=== PATIENT | male | born 1945 | race Caucasian/White ===

== ENCOUNTER 2018-04-13 08:35 | Emergency (ER) | payer OTHER, MEDICARE ==
[~2018-04-13] VITALS: Ht 175.3 cm; Wt 100.0 kg
[2018-04-13] MEDS ORDERED: HUMIRA PEN40 MG/0.1 SC (08:54)
[2018-04-13] MEDS ORDERED: CARVEDILOL12.5 MG PO (08:56)
[2018-04-13] MEDS ORDERED: ELIQUIS5 MG PO (08:56)
[2018-04-13] MEDS ORDERED: ATORVASTATIN CA80 MG PO (08:56)
[2018-04-13] MEDS ORDERED: DOCU SOFT100 MG PO (08:57)
[2018-04-13] MEDS ORDERED: CLONIDINE0.1 MG PO (08:57)
[2018-04-13] MEDS ORDERED: HYDROCHLOROT12.5 MG PO (08:58)
[2018-04-13] MEDS ORDERED: FOLIC ACID1 MG PO (08:58)
[2018-04-13] MEDS ORDERED: LOSARTAN POT50 MG PO (08:59)
[2018-04-13] MEDS ORDERED: PREDNISONE5 MG PO (08:59)
[2018-04-13] MEDS ORDERED: METHOTREXATE2.5 MG PO (09:00)
[2018-04-13 09:23] LABS: HEMATOCRIT 40.9 % (39.0-50.0); HEMOGLOBIN 13.8 g/dl (14.0-18.0); IMMATURE GRANULOCYTES 0.5 % (0.0-5.0); MEAN CELL VOLUME 106.5 fL CALC (80.0-100.0); MEAN CORPUSCULAR HGB 35.9 pG CALC (26.0-32.0); MEAN CORPUSCULAR HGB CONC 33.7 g/L CALC (32.0-36.0); NEUT# 4.78 thou/uL (1.82-7.42); RED BLOOD COUNT 3.84 mill/uL (4.70-6.10); RED CELL DISTRI WIDTH 14.9 % (11.5-15.5)
[2018-04-13 09:43] LABS: ALKALINE PHOSPHATASE 69 u/l (38-126); ANION GAP 14 (6-22 (CALC)); BUN 24 mg/dL (8-23); BUN/CREATININE RATIO 21 (12-20 (CALC)); CARBON DIOXIDE 26 mmol/l (22-30); CHLORIDE 106 mmol/l (95-108); CREATININE 1.2 mg/dL (0.7-1.3); GFR 59 ML/MIN (>=60 (CALC)); GFR FOR AFR.AMER. > 60 ML/MIN (>=60 (CALC)); POTASSIUM 4.5 mmol/l (3.5-5.1); SGOT/AST 31 u/l (19-48); SODIUM 141 mmol/l (137-146); TOTAL PROTEIN 6.9 g/dL (6.3-8.2)
[2018-04-13] MEDS ORDERED: TESSALON PERLE100 MG PO (10:37)
[2018-04-13] MEDS ORDERED: MEDDOSEPAK PO (10:37)
[2018-04-13] MEDS ORDERED: PROVENTIL108 MCG/AC IN (10:37)
[2018-04-13] MEDS ORDERED: ZITHROMAX250 MG PO (10:37)
[2018-04-13 10:46] VITALS: BP 146/77
== END 2018-04-13 11:01 | disposition home or self-care (01) | DRG 153 ==
LOC: ED 08:35
PROVIDERS: Emergency Medicine
DX: J06.9 Acute upper respiratory infection, unspecified (principal); R06.02 Shortness of breath; R53.81 Other malaise; R53.1 Weakness; I48.0 Paroxysmal atrial fibrillation
CPT/HCPCS: Q9967

== ENCOUNTER 2019-05-13 07:18 | Emergency (ER) | payer OTHER, MEDICARE ==
[~2019-05-13 07:18] MED LIST: ATORVASTATIN CA80 MG PO; CARVEDILOL12.5 MG PO; CLONIDINE0.1 MG PO; DOCU SOFT100 MG PO; ELIQUIS5 MG PO; FOLIC ACID1 MG PO; HUMIRA PEN40 MG/0.1 SC; HYDROCHLOROT12.5 MG PO; LOSARTAN POT50 MG PO; MEDDOSEPAK PO; METHOTREXATE2.5 MG PO; PREDNISONE5 MG PO; PROVENTIL108 MCG/AC IN; TESSALON PERLE100 MG PO; ZITHROMAX250 MG PO
[2019-05-13] MEDS ORDERED: PROAIR HFA108 MCG/AC PO (07:32)
[2019-05-13] MEDS ORDERED: DOXYCYC MONO100 M2 PO (07:32)
[2019-05-13] MEDS ORDERED: NORVASC10 M1 PO (07:39)
[2019-05-13 07:49] VITALS: BP 126/71
[2019-05-16] MEDS ORDERED: CHERATUSSIN PO (08:16)
== END 2019-05-13 07:48 | disposition home or self-care (01) | DRG 153 ==
LOC: ED 07:18
DX: J06.9 Acute upper respiratory infection, unspecified (principal); I10 Essential (primary) hypertension; I48.0 Paroxysmal atrial fibrillation

== ENCOUNTER 2019-05-31 08:17 | Emergency (ER) | payer MEDICARE ==
[~2019-05-31 08:17] MED LIST changes: +CHERATUSSIN PO; +DOXYCYC MONO100 M2 PO; +NORVASC10 M1 PO; +PROAIR HFA108 MCG/AC PO
[2019-05-31] MEDS ORDERED: ZPAK PO (08:50)
[2019-05-31] MEDS ORDERED: CHERATUSSIN PO (08:50)
[2019-05-31 09:05] VITALS: BP 118/68
== END 2019-05-31 09:05 | disposition home or self-care (01) | DRG 153 ==
LOC: ED 08:17
DX: J06.9 Acute upper respiratory infection, unspecified (principal); I10 Essential (primary) hypertension; I48.0 Paroxysmal atrial fibrillation

== ENCOUNTER 2019-06-05 07:19 | Emergency (ER) | payer MEDICARE ==
[~2019-06-05 07:19] MED LIST changes: +ZPAK PO
[2019-06-05] MEDS ORDERED: ALL DAY10 MG PO (07:42)
[2019-06-05] MEDS ORDERED: FLONASE AL50 MCG/ACT (07:42)
[2019-06-05 07:51] VITALS: BP 98/40
== END 2019-06-05 08:08 | disposition home or self-care (01) | DRG 916 ==
LOC: ED 07:19
DX: T78.40XA Allergy, unspecified, initial encounter (principal); I10 Essential (primary) hypertension; I48.0 Paroxysmal atrial fibrillation; X58.XXXA Exposure to other specified factors, initial encounter